=== PATIENT | female | born 1935 | race African-American/Black ===

== ENCOUNTER → 2016-08-08 | Outpatient (CLI) | payer OTHER ==
[2015-12-14 14:27] VITALS: BP 108/48
[~2016-08-08] MED LIST: ASPI-482 PO; CHOL20003 PO; CITA20TA5 PO; CLOP75TA27 PO; COD1CAPS2 PO; FLUO10CA13 PO; GABA-585 PO; HYDR-2666 PO; INSU100C4 SQ; INSU100I13 SQ; INSU100I17 SQ; INSU100V13 SQ; INSU100V31; INSU100V8; INSU100V8 SQ; ISOS60TA PO; ISOS60TA2 PO; LIDO700A4 TP; LORA10TA3 PO; LOSA100T6 PO; METO100T2 PO; METO100T5 PO; METO50TA2; MULT-246 PO; MULT-658 PO; OM-31CAP4 PO; PANT40TA3 PO; SIMV40TA3 PO; TRAM50TA PO
--- NOTE | 2016-08-08 15:14 | RAD ---
DATE: 08/08/2016 EXAM: DIGITAL DIAGNOSTIC BILATERAL, BREAST LEFT HISTORY: Left breast mass 12:00. There, according to the patient, since a fall 3 months ago. COMPARISON: None CAD was utilized to render Interpretation in this case FINDINGS: The breast parenchyma shows scattered fibroglandular densities. Breast parenchyma level B. The right breast is unremarkable. In the retroareolar position of the left breast at the 12:00 position there is a reasonably well-defined 2.8 cm mass. Targeted ultrasound was performed. Corresponding to the mammographic finding behind the left breast is a hypoechoic 2.7 cm slightly shadowing vascular mass. A much smaller 6 mm satellite mass is seen immediately adjacent to the dominant mass. The mammographic and ultrasound findings are highly suspect for malignancy. Ultrasound-guided biopsy is recommended. The recommendation for biopsy was communicated by me to the patient. IMPRESSION: 2.7 cm mass left breast highly suspect for malignancy. Ultrasound-guided biopsy recommended BI-RADS CATEGORY: 4 SUSPICIOUS ABNORMALITY-BIOPSY SHOULD BE CONSIDERED RECOMMENDED FOLLOW-UP: BIO BIOPSY RECOMMENDED PQRS compliance statement: Patient information was entered into a reminder system with a target due date soon for the next mammogram. Mammography is a sensitive method for finding small breast cancers, but it does not detect them all and is not a substitute for careful clinical examination. A negative mammogram does not negate a clinically suspicious finding and should not result in delay in biopsying a clinically suspicious abnormality. "Our facility is accredited by the [employer] Mammography Program."
== END | disposition home or self-care (01) ==
LOC: MAMMO 13:19
PROVIDERS: ATTEND Family Medicine
DX: R92.8 Other abnormal and inconclusive findings on diagnostic imaging of breast (principal)
CPT/HCPCS: 76641; G0204; 77066

== ENCOUNTER → 2016-08-23 | Outpatient (CLI) | payer OTHER ==
[~2016-08-23] VITALS: Ht 165.1 cm; Wt 102.1 kg
[~2016-08-23] MED LIST changes: +METF10002 PO
[2016-08-23 08:23] VITALS: BP 139/72
--- NOTE | 2016-08-23 12:09 | RAD ---
EXAM: GUID NDL PLACE/ASPI/BX, DIGITAL DIAGNOSTIC LT. HISTORY: Left breast mass at 12:00 and superficial enlarged left axillary lymph node. COMPARISON: Left breast ultrasound and bilateral mammogram 08/08/2016. Ultrasound-guided left breast biopsy and left axillary lymph node biopsy PROCEDURE: Risks and benefits of procedure were discussed with the patient. Written informed consent was obtained. The irregular hypoechoic mass was identified at 12:00 under ultrasound visualization. Appropriate site on the skin was marked under ultrasound. The skin was prepped and draped in usual sterile fashion. Local anesthesia was provided with 1% lidocaine. A small timmy on the skin was made with scalpel. Under ultrasound visualization, a total of 6 passes with a [employer] 14-gauge needle core biopsy gun were made of the mass. The initial passes were made such that prior to firing the tip of the needle was at the periphery of the mass. There was somewhat poor penetration of the needle into the mass with this location with small, fragmented samples were returned. The later passes were made with the tip of the needle (prior to firing) within the substance of the mass. These also produce somewhat fragmentary samples, although the fifth and sixth samples appeared more intact. Samples were sent in formalin to pathology. A biopsy clip was then deployed under ultrasound into the mass. The left axillary lymph node was then targeted. Appropriate site on the skin over the left axilla was marked. The skin was prepped and draped in the usual sterile fashion using a separate biopsy tray from the biopsy of the large left breast mass at 12:00. Local anesthesia was provided with 1% lidocaine. A small timmy on the skin was made with scalpel. Under ultrasound visualization, 3 passes with a [employer] 18-gauge needle core biopsy gun was made of the superficial left axillary lymph node. Under ultrasound, the lymph node appeared to have a complex cystic appearance, suggesting necrosis. The initial biopsy returned was quite fragmented and demonstrated presence of cloudy, dark yellow fluid. Under ultrasound, the subsequent biopsies were noted to have a decreased size of the left axillary lymph node. The samples were also fragmented. Samples were sent to pathology in formalin. Patient tolerated the procedure well and there were no acute ill effects. Diagnostic left mammogram FINDINGS: Digital mammography was performed. Routine CC and MLO views of the left breast were obtained. The images demonstrate presence of biopsy clip within the substance of the irregular mammographic mass at 12:00. IMPRESSION: 1. Technically successful ultrasound-guided biopsy of mass at 12:00. 6 passes were made and returned fragmented samples. Post procedure mammogram demonstrates biopsy clip within the mass. 2. Technique successful ultrasound-guided biopsy of left axillary lymph node. 3 passes were made and then returned fragments and samples.
== END | disposition home or self-care (01) ==
LOC: US 07:59
PROVIDERS: ATTEND Surgery
DX: N63 Unspecified lump in breast (principal); R22.32 Localized swelling, mass and lump, left upper limb; I10 Essential (primary) hypertension; E11.9 Type 2 diabetes mellitus without complications
CPT/HCPCS: 76942; C1713; G0206; 19081; 77065

== ENCOUNTER 2016-09-26 05:35 | Inpatient (IN) | payer OTHER ==
[~2016-09-26] VITALS: Ht 165.1 cm; Wt 102.5 kg
[2016-09-26] VITALS (8 sets, daily range): BP systolic 139–177; BP diastolic 67–107
[~2016-09-26 05:35] MED LIST changes: +INSU100I16 SQ; +METF-620 PO; -METF10002 PO
[2016-09-26] MEDS ORDERED: PROPOFOL 20 ML IV ONE (06:35)
[2016-09-26] MEDS ORDERED: DEXAMETHASONE SOD PHOS 20 MG/5 ML VIAL. ONE (06:35)
[2016-09-26] MEDS ORDERED: ONDANSETRON PF 4 MG/2 ML VIAL. ONE (06:35)
[2016-09-26] MEDS ORDERED: LIDOCAINE 2% 100 MG/5 ML SYRINGE. ONE (06:35)
[2016-09-26 06:56] LABS: BASO % 0 % (0-3); EOS % 1 % (0-3); HEMATOCRIT 36.5 % (36.0-47.0); HEMOGLOBIN 12.2 g/dL (12.0-15.5); LYMPH # 1.4 x10^3/uL (1.0-4.8); LYMPH % 20 % (24-48); MEAN CORPUSCULAR HEMOGLOBIN 27 pg (25-35); MEAN CORPUSCULAR HGB CONC 34 g/dL (31-37); MEAN CORPUSCULAR VOLUME 81 fL (79-100); MONO % 14 % (0-9); NEUT % 64 % (31-73); PLATELET COUNT 229 x10^3/uL (140-400); RED CELL DISTRIBUTION WIDTH 13.4 % (11.5-14.5)
[2016-09-26] MEDS ORDERED: LIDOCAINE 1% 1 ML SYRINGE. ID PRN (07:00)
[2016-09-26] MEDS ORDERED: HYDROmorphone 2 MG/ML VIAL IV PRN ×2 (07:00→11:15)
[2016-09-26] MEDS ORDERED: MORPHINE SULFATE 2 MG/ML DISP.SYRIN. IV PRN (07:00)
[2016-09-26] MEDS ORDERED: ONDANSETRON PF 4 MG/2 ML VIAL. IV PRN ×2 (07:00→11:15)
[2016-09-26] MEDS ORDERED: PROCHLORPERAZINE 10 MG/2 ML VIAL. IV PRN (07:00)
[2016-09-26] MEDS ORDERED: IV RINGERS,LACTATED 1000ML 1,000 ML IV SCH (07:00)
[2016-09-26 07:03] LABS: CALCIUM 9.7 mg/dL (8.5-10.1); CREATININE 1.2 mg/dL (0.6-1.0); GFR 52.3
[2016-09-26 07:09] LABS: ALBUMIN 3.8 g/dL (3.4-5.0); ALBUMIN/GLOBULIN RATIO 0.8 (1.0-1.7); TOTAL BILIRUBIN 0.3 mg/dL (0.2-1.0); TOTAL PROTEIN 8.3 g/dL (6.4-8.2)
[2016-09-26] MEDS ORDERED: ISOSULFAN BLUE 50 MG/5 ML VIAL. SQ ONE (07:18)
[2016-09-26] MEDS ORDERED: LIDOCAINE 1% / SOD BICARB 8.4% 20 ML VIAL. IJ ONE (07:30)
[2016-09-26] MEDS ORDERED: fentaNYL PF VIAL 100 MCG/2 ML VIAL ONE ×2 (08:44→09:27)
[2016-09-26] MEDS ORDERED: ePHEDrine PF IN SALINE 50 MG/5 ML DISP.SYRIN IV ONE (09:02)
[2016-09-26] MEDS ORDERED: SEVOFLURANE 61 TO 120 MINUTES. IH ONE ×2 (09:19→10:06)
[2016-09-26] MEDS ORDERED: DEXTROSE 50% 25 GM / 50ML DISP.SYRIN. IV ONE (09:25)
--- NOTE | 2016-09-26 09:29 | RAD ---
Indication: Left breast carcinoma. Patient presents for sentinel injection. The left breast was prepped and draped in the usual sterile fashion. A total of 1 mCi of 0.45 micron filtered sulfur colloid in a volume of 1.5 cc was injected in a periareolar distribution in 4 separate aliquots at the 12, 3, 6 and 9:00 location of the left breast. The patient tolerated the procedure well. No images were obtained. Impression: Left breast injection for sentinel node identification in the OR.
[2016-09-26] MEDS ORDERED: MORPHINE SULFATE 10 MG/ML VIAL. ONE (09:56)
[2016-09-26] MEDS ORDERED: SEVOFLURANE > 120 MINUTES. IH ONE (10:42)
--- NOTE | 2016-09-26 11:14 | PDOC4 ---
Operative Note Operative Note Operative Note: Preoperative Diagnosis: Left breast cancer Postoperative Diagnosis: Same Procedure: Left simple mastectomy, sentinel node biopsy Surgeon: Leonidas Fallon.: Myranda SALAZAR EBL: 50 ml Anesthesia: Gen. Specimen: Left axillary sentinel lymph nodes 1-3, left breast stitch at 12:00 to pathology Drains: 19 Amharic round Bro drain to chest wall Complications: None Indication: The patient is an 81-year-old female who underwent evaluation for left breast mass. She was found to have invasive carcinoma. In reviewing her options she prefers a complete mastectomy and we will incorporate a sentinel lymph node biopsy. The details and risks of surgery were discussed with the patient. The risks include bleeding, infection, pain, wound healing problems, scar tissue, anesthetic risk, potential need for additional surgery or procedure. She understands and would like to proceed. Description: The patient was taken to the operating room following injection of technetium sulfur colloid. She was laid supine on the operating table. Gen. anesthesia was performed. The left breast and axilla were prepped with ChloraPrep and draped in a standard surgical manner. 5 mL of Lymphazurin were injected deep to the left nipple areolar complex. Several minutes were allowed to elapse. An elliptical marking was then placed around the left breast in planning for the incision. The axillary portion of this marking was then incised with a 10 blade scalpel. Cautery dissection was carried down into the axillary tissue. The C-Trak probe identified an initial focal area of increased nuclear uptake. This corresponded to a lymph node which did show a blue staining tract leading to it. This lymph node was harvested and sent to pathology labeled sentinel lymph node #1. Two additional lymph nodes following this were identified as showing increased nuclear uptake. The second one in particular was quite generous in size but all felt fairly soft. Both lymph nodes were harvested and sent to pathology labeled sentinel lymph nodes 2 and 3. Following this further inspection showed no other areas of increased nuclear uptake or blue staining. She had some mildly enlarged remaining nodes that were otherwise soft with no other suspicious findings. The frozen section evaluation of these nodes was negative for metastasis. We therefore concluded the axillary portion and proceeded with the mastectomy. With a scalpel incision was made at the elliptical marking. The marking included a superficial subcutaneous mass located in the axilla which had shown benign results with prior needle biopsy. We then developed the skin flaps starting with the superior flap. With cautery dissection the skin was from the deeper breast parenchyma. This dissection was carried superiorly to the level just below the clavicle. The dissection was then continued down to the chest wall. In a similar manner the inferior flap was developed. This dissection included the inframammary fold to the level of the superior torso. Multiple blood vessels were encountered during this dissection and all were readily controlled with cautery. In a medial to lateral fashion the breast was dissected away from the pectoralis muscle and chest wall. Laterally the dissection included the axillary tail of Lawson. The entire breast was then completely excised and a stitch bib the 12 o'clock position. The specimen was sent to pathology. Several small bleeding points were again readily controlled with cautery. Hemostasis was good at this point. A 19 Amharic round Bro drain was left in the chest wall which exited inferiorly. This was secured to the skin with 2-0 silk. The subcutaneous tissue was then approximated with interrupted 3-0 Vicryl. The skin was then closed with a 4-0 Monocryl suture. A sterile OpSite dressing was then applied. The patient tolerated the procedure well and was sent to the recovery room in stable condition. At the end of the case all counts were correct. WIL LANG MD September 26, 2016 11:14
[2016-09-26] MEDS ORDERED: HYDROcodone/APAP 5/325MG 1 TAB TABLET PO PRN (11:15)
[2016-09-26] MEDS ORDERED: 0.9 % SODIUM CHLORIDE 10 ML DISP.SYRIN. IV PRN (11:15)
[2016-09-26] MEDS: fentaNYL PF VIAL 100 MCG/2 ML VIAL IV PRN ×4 (11:47→12:52)
[2016-09-26] MEDS: IV 1/2 NORMAL SALINE 1,000 ML IV SCH (13:45)
[2016-09-26] MEDS ORDERED: INSULIN DETEMIR 300 UNITS/3 ML INSULN.PEN. SQ SCH (21:00)
[2016-09-26] MEDS ORDERED: SIMVASTATIN 40 MG TABLET. PO SCH (21:00)
[2016-09-26] MEDS ORDERED: INSULIN ASPART 300 UNITS/3 ML INSULN.PEN SQ ONE (21:00)
[2016-09-26] MEDS: HYDROcodone/APAP 5/325MG 1 TAB TABLET PO PRN (21:06)
[2016-09-26] MEDS ORDERED: ENOXAPARIN 40 MG/0.4 ML SYRINGE. SQ SCH (22:00)
[2016-09-27] MEDS: IV 1/2 NORMAL SALINE 1,000 ML IV SCH (00:30)
[2016-09-27 03:35] VITALS: BP 144/76
[2016-09-27 07:00] VITALS: BP 147/87
[2016-09-27] MEDS ORDERED: INSULIN ASPART 300 UNITS/3 ML INSULN.PEN SQ SCH (07:30)
[2016-09-27] MEDS: HYDROcodone/APAP 5/325MG 1 TAB TABLET PO PRN ×2 (08:59→12:19)
[2016-09-27] MEDS ORDERED: ASPIRIN ENTERIC COATED 81 MG TABLET.DR. PO SCH (09:00)
[2016-09-27] MEDS ORDERED: MULTIVITAMIN with MINERAL TABLET. PO SCH (09:00)
[2016-09-27] MEDS ORDERED: CHOLECALCIFEROL (VITAMIN D3) 1,000 UNIT TABLET PO SCH (09:00)
[2016-09-27] MEDS ORDERED: ISOSORBIDE MONONITRATE ER 60 MG TAB.ER.24H. PO SCH (09:00)
[2016-09-27] MEDS ORDERED: INSULIN DETEMIR 300 UNITS/3 ML INSULN.PEN. SQ SCH (09:00)
[2016-09-27] MEDS ORDERED: CETIRIZINE HCL 10 MG TABLET. PO SCH (09:00)
[2016-09-27] MEDS ORDERED: LOSARTAN POTASSIUM 50 MG TABLET. PO SCH (09:00)
[2016-09-27] MEDS: INSULIN ASPART 300 UNITS/3 ML INSULN.PEN SQ SCH ×2 (09:10→12:14)
--- NOTE | 2016-09-27 09:57 | PDOC ---
Provider Note Provider Note Pt seen,medical consult dictated. #[id number] LUI PATRICK MD September 27, 2016 09:57
[2016-09-27 11:00] VITALS: BP 116/74
--- NOTE | 2016-09-27 13:03 | PDOC ---
SURGICAL PROGRESS NOTE Subjective tolerating diet ambulated daughter present, staying with pt until saturday Vital Signs Vital Signs Date Time Temp Pulse Resp B/P (MAP) Pulse Ox O2 Delivery O2 Flow Rate FiO2 09/27/16 11:00 98.0 88 18 116/74 (88) 98 Room Air 98.0 09/27/16 07:00 2.0 I&O Intake and Output 09/27/16 07:00 Intake Total 1150 ml Output Total 275 ml Balance 875 ml Intake IV Total 1150 ml Output Drainage Total 225 ml Estimated Blood Loss 50 ml # Voids 3 General: Alert, Oriented X3, Cooperative, No acute distress Skin: Other (left breast incision no edema, no erythema, dresing dry , drain serosang) Labs Laboratory Tests Test 09/26/16 06:35 09/26/16 09:24 09/26/16 09:40 09/26/16 11:32 White Blood Count 7.0 x10^3/uL (4.0-11.0) Red Blood Count 4.50 x10^6/uL (3.50-5.40) Hemoglobin 12.2 g/dL (12.0-15.5) Hematocrit 36.5 % (36.0-47.0) Mean Corpuscular Volume 81 fL (79-100) Mean Corpuscular Hemoglobin 27 pg (25-35) Mean Corpuscular Hemoglobin Concent 34 g/dL (31-37) Red Cell Distribution Width 13.4 % (11.5-14.5) Platelet Count 229 x10^3/uL (140-400) Neutrophils (%) (Auto) 64 % (31-73) Lymphocytes (%) (Auto) 20 % (24-48) Monocytes (%) (Auto) 14 % (0-9) Eosinophils (%) (Auto) 1 % (0-3) Basophils (%) (Auto) 0 % (0-3) Neutrophils # (Auto) 4.5 x10^3uL (1.8-7.7) Lymphocytes # (Auto) 1.4 x10^3/uL (1.0-4.8) Monocytes # (Auto) 1.0 x10^3/uL (0.0-1.1) Eosinophils # (Auto) 0.1 x10^3/uL (0.0-0.7) Basophils # (Auto) 0.0 x10^3/uL (0.0-0.2) Sodium Level 146 mmol/L (136-145) Potassium Level 4.0 mmol/L (3.5-5.1) Chloride Level 109 mmol/L (98-107) Carbon Dioxide Level 26 mmol/L (21-32) Anion Gap 11 (6-14) Blood Urea Nitrogen 24 mg/dL (7-20) Creatinine 1.2 mg/dL (0.6-1.0) Estimated GFR (Cockcroft-Gault) 52.3 BUN/Creatinine Ratio 20 (6-20) Glucose Level 47 mg/dL (70-99) Calcium Level 9.7 mg/dL (8.5-10.1) Total Bilirubin 0.3 mg/dL (0.2-1.0) Aspartate Amino Transf (AST/SGOT) 24 U/L (15-37) Alanine Aminotransferase (ALT/SGPT) 30 U/L (14-59) Alkaline Phosphatase 80 U/L (46-116) Total Protein 8.3 g/dL (6.4-8.2) Albumin 3.8 g/dL (3.4-5.0) Albumin/Globulin Ratio 0.8 (1.0-1.7) Glucose (Fingerstick) 55 mg/dL (70-99) 111 mg/dL (70-99) 88 mg/dL (70-99) Test 09/26/16 12:37 09/26/16 16:09 09/26/16 20:16 09/27/16 00:32 Glucose (Fingerstick) 118 mg/dL (70-99) 173 mg/dL (70-99) 420 mg/dL (70-99) 258 mg/dL (70-99) Test 09/27/16 07:37 09/27/16 11:19 Glucose (Fingerstick) 94 mg/dL (70-99) 135 mg/dL (70-99) Laboratory Tests Test 09/26/16 16:09 09/26/16 20:16 09/27/16 00:32 09/27/16 07:37 Glucose (Fingerstick) 173 mg/dL (70-99) 420 mg/dL (70-99) 258 mg/dL (70-99) 94 mg/dL (70-99) Test 09/27/16 11:19 Glucose (Fingerstick) 135 mg/dL (70-99) Problem List s/p mastectomy drain teaching, lymphedema eval(script left) FU next week Problems: LAURYN LEVI APRN September 27, 2016 13:03
--- NOTE | 2016-09-27 13:05 | DISCH ---
DISCHARGE INSTRUCTIONS Condition on Discharge Condition on Discharge: Stable Activity After Discharge Activity Instructions for Disc: Activity as tolerated, Avoid exertion Bathing Instructions: Shower-keep dressing dry Lifting Instructions after Dis: No heavy lifting, No pulling or pushing Exercise Instruction after Dis: Walk 15 min, 3 x per day Driving Instructions after Dis: Do not drive Diet after Discharge Diet after Discharge: Regular Wound Incision Care Wound/Incision Care: Do not change dressing, May get incision wet Other wound/incision instructi: drain care as instructed Contacting the after DC Call your doctor for: Concerns you may have Follow-Up Follow up with: Dr Lauren on 10/02/16 at 145pm--[phone] LAURYN LEVI APRN September 27, 2016 13:05
[2016-09-27] MEDS ORDERED: HYDR-2666 PO (13:10)
[2016-09-27 15:00] VITALS: BP 90/48
--- NOTE | 2016-09-28 02:52 | CONS ---
DATE OF CONSULTATION: LOCATION: 442 ATTENDING PHYSICIAN: Dr. Lauren. PRIMARY CARE PHYSICIAN: Dr. Juarez. HISTORY OF PRESENT ILLNESS: The patient is an 81-year-old female, a patient of Dr. Juarez. She was recently found to have infiltrating ductal carcinoma of the left breast, stage 2 and she had a simple mastectomy, left with sentinel node biopsy and I was asked to see her for primary care, mostly diabetes. PAST MEDICAL HISTORY: Sleep apnea, on CPAP, diabetes, hypertension, hyperlipidemia, CAD, stent placed in the past, osteoarthritis. PAST SURGICAL HISTORY: The patient had a cardiac stent, gallbladder surgery, Billroth 2 surgery, cataract extraction and recent lymph node biopsy in the left breast. ALLERGIES: No known drug allergies. MEDICATIONS: Reviewed. Medications at home, the patient takes insulin 10 units with each meal, fish oil daily, aspirin 81 mg daily, vitamin D 2000 daily, Levemir 40 units in the morning and 66 in the evening, isosorbide 30 mg daily, loratadine 10 mg daily, losartan 100 mg daily, metformin 1000 mg daily, vitamin daily, simvastatin 40 mg daily. PERSONAL HISTORY: History of smoking in the past for 40 years, quit a couple of years ago. Social alcohol. Denies any drugs. REVIEW OF SYMPTOMS: Complains of pain in the surgical site, otherwise she feels okay. PHYSICAL EXAMINATION: VITAL SIGNS: Show temperature 97, pulse 87, respirations 20, blood pressure 127/63, 97 on room air. HEENT: Head is atraumatic. Pupils equal. Oral cavity: Dentures. NECK: Supple. Thyroid not enlarged. JVD not elevated. CHEST: Dressing in the left breast. CARDIOVASCULAR: S1, S2. LUNGS: Clear. ABDOMEN: Soft, no mass palpable. EXTERNAL GENITALIA: No Chapman. RECTAL: Deferred. EXTREMITIES: No calf tenderness, no edema. Pulses 1+. NEUROLOGIC: Moving all extremities. No focal deficit noted. LABORATORY DATA: Shows a white count of 7, hemoglobin 12, platelets 229. Electrolytes show sodium 146, potassium 4.0, chloride 109, bicarb 26, BUN 24, creatinine 1.2, glucose 47. LFTs were normal. FINAL IMPRESSION: 1. Stage 2 breast carcinoma, has infiltrating ductal carcinoma with positive lymph nodes and ER and HI negative and the patient underwent simple mastectomy, sentinel node biopsy. 2. History of diabetes, insulin-dependent. 3. Hypertension. 4. Hyperlipidemia. 5. Coronary artery disease, history of cardiac stent. 6. Sleep apnea. PLAN: At this time, the patient is doing well after surgery. Resume home medications. Sugars around 100 range to 150 and plan is to discharge home later today. Follow up with Dr. Juarez again. Thank you, Dr. Lauren for allowing me to participate in the care of this patient. LUI PATRICK MD DR: ALFREDO/alphonso JOB#: [id number] / [id number] SUNNY Cesar
--- NOTE | 2016-10-01 14:13 | PDOC3 ---
Discharge Summary* Date of Admission: September 26, 2016 Date of Discharge: September 27, 2016 Admitting Diagnosis Breast cancer Final Diagnosis Breast cancer CONSULTS PCP Procedures Left simple mastectomy, sentinel node biopsy Brief Hospital Course Ms. Moody is a 81 old female who presented with breast cancer, underwent mastectomy. Postoperatively tolerating her diet, ambulating, pain managed. Her daughter is assisting in her care at discharge. Home with drain and follow up next week Disposition/Orders: D/C to Home w/ HH CONDITION AT DISCHARGE: Stable Diet: Regular Scheduled Aspirin (Aspir 81), 81 MG PO DAILY, (Reported) Cholecalciferol (Vitamin D3) (Vitamin D3), 2,000 UNIT PO DAILY, (Reported) Insulin Detemir (Levemir), 40 UNIT SQ DAILY, (Reported) Insulin Detemir (Levemir), 66 UNIT SQ HS, (Reported) Insuln Asp Prt/Insulin Aspart (Novolog Mix 70-30 Flexpen Syrn), 10 UNIT SQ AC TID, (Reported) Isosorbide Mononitrate (Isosorbide Mononitrate Er), 60 MG PO DAILY, (Reported) Loratadine (Loratadine), 1 TAB PO DAILY, (Reported) Losartan Potassium (Losartan Potassium), 100 MG PO DAILY, (Reported) Metformin Hcl (Metformin Hcl), 1,000 MG PO DAILYWBKFT, (Reported) Multivitamin (Multi-Vitamin Daily), 1 EACH PO DAILY, (Reported) Om-3/Dha/Epa/Fish Oil/Vit D3 (Fish Oil + Vitamin D-3 Softgel), 1 EACH PO DAILY, (Reported) Simvastatin (Simvastatin), 40 MG PO DAILY, (Reported) FOLLOW UP APPOINTMENT: 1 week Time Spent Total time spent with patient [] minutes for coordination of care, counseling, and education. LAURYN LEVI TAXI [employer] October 01, 2016 14:13
--- NOTE | 2016-10-01 15:34 | PATHOLOGY ---
PATHOLOGY REPORT * * * * * * * * FINAL DIAGNOSIS: A. "[place] lymph node, hot, blue channel", biopsy: - One lymph node with no evidence of carcinoma (0/1). - Cytokeratin immunoperoxidase stain negative. B. "[place] lymph node, hot", biopsy: - One lymph node with no evidence of carcinoma (0/1). - Cytokeratin immunoperoxidase stain negative. C. "[place] lymph node, hot", biopsy: - One lymph node with no evidence of carcinoma (0/1). - Cytokeratin immunoperoxidase stain negative. D. 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) Histologic Grade: Tubule formation: Score 3: <10% of tumor area forming glandular/tubular structures Nuclear pleomorphism: Score 3: Vesicular nuclei, often with prominent nucleoli, exhibiting marked variation in size and shape, occasionally with very large and bizarre forms Mitotic Rate: Score 3 (>=8 mitoses per mm2) [place] Histologic Score-Grade III: 8-9 points Ductal Carcinoma In Situ: No DCIS is present Lobular Carcinoma In Situ (LCIS): Not identified Tumor Size: Size of Largest Invasive Carcinoma: Greatest dimension of largest focus of invasion > 1 mm Greatest dimension: 30 mm Skin: Invasive carcinoma does not invade into the dermis or epidermis Satellite foci not identified Not applicable No skeletal muscle present Invasive Carcinoma Margins: Margins uninvolved by invasive carcinoma. Distance from closest margin: 40 mm Closest Uninvolved Margin-Superior Distance of invasive carcinoma to superior margin: 40 mm DCIS Margins: DCIS not present in specimen Lymph-Vascular Invasion: Not identified Dermal Lymph-Vascular Invasion: Not identified Microcalcifications: Present in both carcinoma and non-neoplastic tissue Treatment Effect: No known presurgical therapy Lymph Nodes: Total number of nodes examined (sentinel and nonsentinel): 3 Micro / Macro Metastases not identified Number of [place] Lymph Nodes examined: 3 Method of Evaluation of [place] Lymph Nodes: H-E, multiple levels Estrogen Receptor: Performed on another specimen, number: [id number] Results from other specimen: 0.2% Progesterone Receptor: Performed on another specimen, number: [id number] Results from other specimen: 0.2% HER2 Immunoperoxidase Results: Performed on another specimen, number: [id number] Results from other specimen: 1+ (NEG) In Situ Hybridization (FISH or CISH) for HER2 Results: Not performed Primary Tumor (Invasive Carcinoma) (pT): pT2: Tumor >20 mm but <= 50 mm in greatest dimension Category (pN): pN0 (i-): No regional lymph node metastases histologically, negative IHC REPORT ELECTRONICALLY SIGNED BY: Mitch Healy M.D. DATE/TIME: 10/01/2016 15:33 * * * * * * * * GROSS PATHOLOGY: A. The specimen is received fresh for frozen section and is designated "sentinel lymph node, hot, blue, channel." This consists of an ovoid-shaped segment of yellow-red fatty tissue measuring up to 2.7 cm in greatest dimension. Sectioning reveals an eccentric yellowish brown lymph node measuring up to approximately 1.0 cm in greatest dimension. This shows no gross evidence of tumor replacement. This is submitted for frozen section as FSA1. The tissue remaining from frozen section is submitted for permanent sections as A1. B. The specimen is received fresh for frozen section and is designated "sentinel lymph node, hot." This consists of a large ovoid segment of yellow-red fatty tissue measuring up to 5.0 cm in length and 3.0 cm in width. Sectioning reveals a partially fatty replaced yellow and reddish brown lymph node measuring up to 2.5 cm in greatest dimension. This shows no gross evidence of tumor replacement. A billing representative portion is submitted for frozen section as FSB1. The tissue remaining from frozen section is submitted for permanent sections as B1. C. The specimen is received fresh for frozen section and is designated "sentinel lymph node, hot." This consists of an irregular segment of yellow-red fatty appearing tissue measuring up to 3.5 cm in greatest dimension. Sectioning reveals an eccentrically located yellowish brown lymph node measuring up to 2.0 cm in greatest dimension. This shows no gross evidence of tumor replacement. This is submitted for frozen section as FSC1. The tissue remaining from frozen section is submitted for permanent sections as C1. (JPM:mgr; d/t: 09/26/16) D. The specimen is received in formalin, labeled "Etienne, left breast", and consists of a left simple mastectomy specimen weighing 2213 g which is oriented as stitch at 12:00 and measures 38.5 23 8 cm. Attached on the anterior aspect is an overlying roughly elliptical fragment of alvarez-brown skin measuring about 38.5 22 cm which has a paracentrally located slightly elevated nonulcerated nipple measuring 1.2 cm in diameter. The deep margin has some areas of disruption and is marked with black dye. The superior and inferior aspects of the specimen are marked with blue and orange dye respectively. The skin surface is without recent incisions are obvious scars. The skin surface near the lateral apex of the ellipse is slightly elevated by an underlying cystic area measuring about 1.8 in diameter located 0.3 cm from the superior, 1 cm from the deep and 0.7 cm from the inferior margin. The breast is subdivided into 4 quadrants and step sectioned revealing a moderately well-circumscribed indurated mottled vigil and red-brown mass near the junction of the upper inner and upper outer quadrants but involving the upper inner breast quadrant measuring 3 3 2.5 cm located 2.5 cm from the deep and 3 cm from the skin surface and 4cm from the closest superior margin. The remainder of the mammary tissue away from the mass is composed largely of lobulated adipose interspersed with areas of dense white fibrous appearing mammary tissue. The breast is surgically excised at 10:28 AM and placed in formalin 10:33 AM on 09/26/16 and has a total estimated form fixation time of 35.5 hours. [employer] sections are submitted as follows: Nipple D1, paired sections including cystic area beneath skin surface near lateral apex of skin D2-D3, 3 contiguous sections including greatest diameter of mass involving upper inner quadrant: D4-D6, deep margin underlying mass: D7, skin overlying mass: D8 and mammary tissue away from mass from the upper outer, upper inner, lower inner and lower outer breast quadrants: D9, D 10, D11 and D12 respectively. (CWM; 09/27/2016) FROZEN SECTION DIAGNOSIS: (Dasha Estrada) A. Lymph node, sentinel lymph node hot, blue: - Negative for tumor. The results are telephoned to Dr. Lauren in the operating room. B. Lymph node, sentinel lymph node, hot: - Negative for tumor. The results are telephoned to Dr. Lauren in the operating room. The remainder of the lymph node which was not frozen is submitted for microscopy as B2. C. Lymph node, sentinel lymph node, hot: - Negative for tumor. The results are telephoned to Dr. Lauren in the operating room. (JPM:mgr; d/t: 09/26/16) Frozen section performed [place] [address] INITIAL CPT CODE(S): A; 75219, 10146, 07021 B; 66708, 76769, 97194, 95196 C; 64629, 70269 D; 81254 Professional services performed by [facility], [address] [place] [address]. Technical services performed by [facility], [address] [place] [address], [id number], [place] [address]. SPECIMEN(S) RECEIVED: A.[place] lymph node hot, blue channel B.[place] lymph node hot C.[place] lymph node hot D.Left breast CLINICAL HISTORY: Malignant neoplasm of central portion of left breast PATIENT: CURTIS ETIENNE /AGE: 308/15/1935 (Age: 81) PATIENT #: [id number] ALT CASE #: SPECIMEN COLLECTION DATE: 09/26/2016 SPECIMEN RECEIVED DATE: 09/26/2016 [facility] - [address] [place] [address] - PHONE: [phone] * * * END OF REPORT * * *
== END 2016-09-27 16:55 | disposition home or self-care (01) | DRG 581 ==
LOC: SURG 05:35 → 4 NORTH 11:35
PROVIDERS: ADMIT Surgery; ATTEND Surgery
PROC: 0HTU0ZZ Resection of Left Breast, Open Approach (ICD-10-PCS; 2016-09-26)
PROC: 07B60ZX Excision of Left Axillary Lymphatic, Open Approach, Diagnostic (ICD-10-PCS; principal; 2016-09-26 08:30)
DX: C50.912 Malignant neoplasm of unspecified site of left female breast (principal); E11.9 Type 2 diabetes mellitus without complications; E78.5 Hyperlipidemia, unspecified; G47.30 Sleep apnea, unspecified; I10 Essential (primary) hypertension; I25.10 Atherosclerotic heart disease of native coronary artery without angina pectoris; Z95.5 Presence of coronary angioplasty implant and graft
CPT/HCPCS: 36415; 38792; 80053; 82947; 85027; 88309; 88331; 88342; 96374; A9541; C1769; J0690; J1100; J1650; J1815; J2270; J2405; J2704; J3010; J7042; J7120; Q9968; G0641

== ENCOUNTER → 2016-11-01 | Outpatient (CLI) | payer OTHER ==
[~2016-11-01] VITALS: Ht 165.1 cm; Wt 98.4 kg
[2016-11-01] VITALS (13 sets, daily range): BP systolic 109–154; BP diastolic 58–90
[~2016-11-01] MED LIST changes: -CHOL20003 PO; +CHOL20009 PO; -CLOP75TA27 PO; +CLOP75TA57 PO; -HYDR-2666 PO; +HYDR-2758 PO; +LIDOCAINE 1% / SOD BICARB 8.4% 20 ML VIAL. IJ ONE; +MIDAZOLAM HCL/PF 5 MG/5 ML VIAL. IV ONE; +MIDAZOLAM HCL/PF 5 MG/5 ML VIAL. ONE; +fentaNYL PF VIAL 250 MCG/5 ML VIAL IV ONE; +fentaNYL PF VIAL 250 MCG/5 ML VIAL ONE
[2016-11-01 07:26] LABS: BASO % 1 % (0-3); EOS % 1 % (0-3); HEMATOCRIT 34.7 % (36.0-47.0); HEMOGLOBIN 11.4 g/dL (12.0-15.5); LYMPH # 2.1 x10^3/uL (1.0-4.8); LYMPH % 31 % (24-48); MEAN CORPUSCULAR HEMOGLOBIN 27 pg (25-35); MEAN CORPUSCULAR HGB CONC 33 g/dL (31-37); MEAN CORPUSCULAR VOLUME 82 fL (79-100); MONO % 11 % (0-9); NEUT % 56 % (31-73); PLATELET COUNT 280 x10^3/uL (140-400); RED BLOOD COUNT 4.26 x10^6/uL (3.50-5.40); RED CELL DISTRIBUTION WIDTH 13.3 % (11.5-14.5); WHITE BLOOD COUNT 6.5 x10^3/uL (4.0-11.0)
[2016-11-01 07:41] LABS: INR 1.1 (0.8-1.1); PROTHROMBIN TIME PATIENT 13.4 SEC (11.7-14.0)
--- NOTE | 2016-11-01 09:01 | PDOC ---
MODERATE SEDATION ASSESSMENT RISKS/ALTERNATIVES Risks/Alternatives Risks and alternatives of this type of sedation and procedure discussed with: RISK/ALTERNATIVES: Patient H & P ON CHART H & P H & P on chart and reviewed for co-morbid conditions and appropriate labs. H&P ON CHART: Yes STATUS PREG STATUS ASSESSED: N/A MEDS/ALLERGIES REVIEWED Meds/Allergies Reviewed Medications and Allergies including time and route of recently administered narcotics and sedatives. MEDS/ALLERGIES REVIEWED: Yes ASA RATING ASA RATING: III AIRWAY ASSESSMENT Airway Assessment Airway patency, oral function limitations, presence of caps, crowns, dentures, partials, and ability to extend neck assessed. AIRWAY ASSESSMENT: Yes MALLAMPATI SCORE MALLAMPATI SCORE: III PRE-SEDATION ASSESSMENT PRE-SEDATION ASSESSMENT: Yes EDDA WALTERS MD Nov 01, 2016 09:01
--- NOTE | 2016-11-01 09:08 | PDOC1 ---
History and Physical Date of Procedure Date of Admission 11/01/16 Procedure Procedure Image guided left chest wall post op seroma drainage catheter insertion Indication Indication 81 YO female with invasive breast carcinoma, s/p simple mastectomy with sentinel node bx 09/26/16. Now with large left chest wall seroma. Past Medical History Past Medical History See Nursing Pre Procedure PMH Past Surgical History Past Surgical History See Nursing Pre Procedure PSH Current Medications Current Medications Current Medications Lidocaine/Sodium Bicarbonate (Buffered Lidocaine 1%) 20 ml STK-MED ONCE IJ ; Start 11/01/16 at 07:40; Stop 11/01/16 at 07:41; Status DC Midazolam HCl (Versed) 5 mg STK-MED ONCE .ROUTE ; Start 11/01/16 at 08:18; Stop 11/01/16 at 08:19; Status DC Fentanyl Citrate (Fentanyl 5ml Vial) 250 mcg STK-MED ONCE .ROUTE ; Start at 08:18; Stop 11/01/16 at 08:19; Status DC Lidocaine/Sodium Bicarbonate (Buffered Lidocaine 1%) 20 ml 1X ONCE IJ Last administered on 11/01/16 08:55; Start 11/01/16 at 08:30; Stop 11/01/16 at 08:36 ; Status DC Midazolam HCl (Versed) 5 mg 1X ONCE IV Last administered on 11/01/16 08:56; Start 11/01/16 at 08:30; Stop 11/01/16 at 08:36; Status DC Fentanyl Citrate (Fentanyl 5ml Vial) 150 mcg 1X ONCE IV Last administered on 08:56; Start 11/01/16 at 08:30; Stop 11/01/16 at 08:36; Status DC Active Scripts Active Reported Novolog Mix 70-30 Flexpen Syrn (Insuln Asp Prt/Insulin Aspart) 100 Unit/1 Ml Insuln.pen 10 Unit SQ AC TID Metformin Hcl 1,000 Mg Tablet 1,000 Mg PO DAILYWBKFT Levemir (Insulin Detemir) 100 Unit/1 Ml Vial 66 Unit SQ HS Levemir (Insulin Detemir) 100 Unit/1 Ml Vial 40 Unit SQ DAILY Multi-Vitamin Daily (Multivitamin) 1 Each Tablet 1 Each PO DAILY Fish Oil + Vitamin D-3 Softgel (Om-3/Dha/Epa/Fish Oil/Vit D3) 1 Each Capsule 1 Each PO DAILY Isosorbide Mononitrate Er (Isosorbide Mononitrate) 60 Mg Tab.er.24h 60 Mg PO DAILY Vitamin D3 (Cholecalciferol (Vitamin D3)) 2,000 Unit Capsule 2,000 Unit PO DAILY Loratadine 10 Mg Tablet 1 Tab PO DAILY Losartan Potassium 100 Mg Tablet 100 Mg PO DAILY Simvastatin 40 Mg Tablet 40 Mg PO DAILY Aspir 81 (Aspirin) 81 Mg Tablet.dr 81 Mg PO DAILY Allergies Allergies: Coded Allergies: No Known Drug Allergies (Unverified , 09/26/16) Physical Exam Vital Signs Vital Signs Date Time Temp Pulse Resp B/P (MAP) Pulse Ox O2 Delivery O2 Flow Rate FiO2 11/01/16 08:58 69 21 98 Nasal Cannula 2.0 11/01/16 07:38 98.3 109/74 (86) 98.3 Lungs: Clear to auscultation Heart: Regular rate Psych/Mental Status: Mental status NL Other Large left chest wall post op fluid collection most c/w seroma Diagnostic Data/Imaging Images None available Assessment Assessment 81 YO female with invasive left breast carcinoma. Large left chest wall seroma , s/p simple mastectomy + sentinel node bx 09/26/16. Problems: Plan Plan Image guided left chest wall post op seroma drainage catheter insertion EDDA WALTERS MD Nov 01, 2016 09:08
--- NOTE | 2016-11-01 09:13 | PDOC ---
Exam Culture Room Worker Culture Room Worker Ana Cristina Electrical Apprentice Electrical Apprentice F Ndumbu Pre-Procedure Diagnosis Pre-Procedure Diagnosis Large post mastectomy left chest wall fluid collection, most consistent with seroma. Post-Procedure Diagnosis Post-Procedure Diagnosis Same Procedure Performed Procedure Performed CT guided left chest wall seroma drainage catheter insertion. Type of Anesthesia Type of Anesthesia Local + Mod sedation. Estimated Blood Loss EBL: Trace Specimens Specimans 800 cc yellow-clear seroma fluid removed----sample to micro for C&S Drain/Tubes Drains/Tubes 10F locking pigtail left chest wall seroma drain -----to bulb suction Condition of Patient Condition of Patient Stable. No apparent complication. Disposition Disposition Discharge from [facility] post recovery, if no problems. Teach patient how to empty STEVE bulb prior to discharge. F/u with Dr Lauren. Full report to follow. EDDA WALTERS MD Nov 01, 2016 09:13
--- NOTE | 2016-11-02 06:41 | RAD ---
CT-guided placement of left chest seroma drainage catheter Indication: 81-year-old female status post simple left mastectomy with sentinel node biopsy in September of this year. She has a large left chest wall postoperative seroma. Image guided drainage catheter insertion has been requested by general surgery. Anesthesia: 26 minutes moderate sedation was provided utilizing a total of 1.5 mg percent and 75 mcg fentanyl, IV. The patient was appropriately monitored by a qualified independent observer throughout the time of moderate sedation. Consent: The procedure was explained in its entirety to the patient and/or the patient's designated patient accounting representative by a member of the treatment team. This included a discussion of risks and benefits and acceptable alternatives to the procedure, as well as expected consequences of no treatment at all. Discussion of risks included, but was not limited to, those that are most frequent and those that are rare, but possibly severe or life-threatening, as well as the possibility of unforeseen complications. Procedure: Informed consent was obtained from the patient. She was placed supine on the CT scanner. Preliminary noncontrast CT images confirmed the presence of a large left chest wall postoperative fluid collection, most consistent with seroma. A skin site suitable for CT-guided drain placement was selected and marked. That area was prepped and draped in the usual sterile fashion. Using aseptic technique, local anesthesia, and CT guidance, a small micropuncture sheath was successfully introduced into the left chest wall seroma. The micropuncture sheath was removed over a guidewire. The percutaneous tract was dilated and a 10 [place] locking pigtail drainage catheter was easily introduced. 800 cc of yellow-clear fluid was then removed, a sample of which was submitted to microbiology for culture and sensitivity. Completion CT images documented satisfactory position of the drainage catheter, with essentially complete evacuation of the left chest wall fluid collection. The drainage catheter was then secured at the skin exit site utilizing suture and sterile dressing and was connected to bulb suction. Patient tolerated the procedure well without apparent complication. Impression: Successful, uneventful CT-guided placement of a left chest wall 10 [place] locking pigtail seroma drainage catheter, as described. PQRS Compliance Statement: One or more of the following individualized dose reduction techniques was utilized for this procedure: 1. Automated exposure control. 2. Adjustment of MA and/or KV according to patient size. 3. Iterative reconstruction technique.
== END | disposition home or self-care (01) ==
LOC: INTRAD 06:04
PROVIDERS: ATTEND Surgery
DX: N64.89 Other specified disorders of breast (principal); H26.9 Unspecified cataract; E78.00 Pure hypercholesterolemia, unspecified; I10 Essential (primary) hypertension; E66.9 Obesity, unspecified; M19.90 Unspecified osteoarthritis, unspecified site; E11.9 Type 2 diabetes mellitus without complications; K21.9 Gastro-esophageal reflux disease without esophagitis; G47.30 Sleep apnea, unspecified; Z68.45 Body mass index [BMI] 70 or greater, adult; Z86.69 Personal history of other diseases of the nervous system and sense organs; Z86.73 Personal history of transient ischemic attack (TIA), and cerebral infarction without residual deficits; Z85.3 Personal history of malignant neoplasm of breast; Z90.49 Acquired absence of other specified parts of digestive tract
CPT/HCPCS: 10030; 36415; 85027; 85610; 87205; A4215; C1729; C1892; C1894; J2250; J3010; 87071; 87075